=== PATIENT | female | born 2000 | race American Indian/Alaskan Native ===

== ENCOUNTER 2021-05-19 22:52 | Emergency (ER) | payer SELFPAY ==
[2021-05-19 23:16] VITALS: BP 112/68
[2021-05-19] MEDS ORDERED: FAMOTIDINE 20 MG/2 ML INJ IV ONE (23:52)
[2021-05-19] MEDS ORDERED: KETOROLAC 30 MG/1 ML INJ IV ONE (23:52)
[2021-05-20 00:26] LABS: Basophils % (Auto) 0.6 % (0.0-1.8); Eosinophils # (Auto) 0.1 K/mm3 (0.0-0.4); Eosinophils % (Auto) 0.9 % (0.0-4.3); Hematocrit 32.9 % (30.3-42.9); Hemoglobin 10.4 gm/dl (10.1-14.3); Lymphocytes # (Auto) 2.1 K/mm3 (1.2-5.4); Lymphocytes % (Auto) 28.6 % (13.4-35.0); Mean Corpuscular HGB Conc 32 % (30-34); Mean Corpuscular Volume 73 fl (79-97); Monocytes # (Auto) 0.7 K/mm3 (0.0-0.8); Monocytes % (Auto) 9.2 % (0.0-7.3); Platelet Count 286 K/mm3 (140-440); Red Blood Count 4.49 M/mm3 (3.65-5.03); Red Cell Distribution Width 15.1 % (13.2-15.2)
[2021-05-20 00:30] LABS: Bacteria,Urine 1+ /HPF (Negative); Bilirubin,Urine NEG (Negative); Blood,Urine NEG (Negative); Color,Urine Colorless (Yellow); Mucus,Urine FEW /HPF; Protein,Urine <15 mg/dL mg/dL (Negative); RBC,Urine < 1.0 /HPF (0.0-6.0); Urobilinogen,Urine < 2.0 mg/dL (<2.0)
[2021-05-20 00:31] LABS: HCG Qualitative,Urine Negative (Negative)
[2021-05-20] MEDS: ONDANSETRON 4 MG/2 ML INJ IV ONE ×2 (01:16→01:29)
--- NOTE | 2021-05-20 01:34 | Emergency Department Report ---
ED Abdominal Pain HPI - General Chief Complaint: Abdominal Pain Stated Complaint: ABD PAIN Source: patient Mode of arrival: Ambulatory Limitations: No Limitations - History of Present Illness Initial Comments: Patient is a nulliparous 20-year-old -[place] female with a history of PCOS who presents to the ED with complaint of acute onset persistent right flank pain that radiates to the right upper quadrant persistently for the last 2 days. Patient states that the pain is sharp, constant and worse with any movement. Patient states that she was initially evaluated at another urgent care clinic and was empirically treated with Bactrim DS for 3 days for suspected UTI. Patient states that in the last 8 hours, the pain has been persistent and worse, and was advised to come to the ED for evaluation when she went to another urgent care for evaluation. Patient denies nausea and vomiting, diarrhea, chest pain or shortness of breath, traumatic injury, heavy lifting, hematemesis, dizziness, syncope, dysuria, urinary frequency and urgency, vaginal bleeding, hematuria, constipation, fever and chills. MD Complaint: abdominal pain (RUQ ), flank pain (right flank) -: Sudden, days(s) (2) Location: RUQ, R flank Radiation: none Migration to: no migration Severity: moderate Severity scale (0 -10): 6 Quality: aching, sharp Consistency: constant Improves With: nothing Worsens With: nothing Associated Symptoms: denies other symptoms, nausea, anorexia. denies: vomiting, diarrhea, fever, chills, constipation, hematemesis, melena, syncope - Related Data Allergies Allergy/AdvReac Type Severity Reaction Status Date / Time No Known Allergies Allergy Unverified 05/19/21 23:21 ED Review of Systems ROS: Stated complaint: ABD PAIN Other details as noted in HPI Constitutional: denies: chills, fever Eyes: denies: eye pain, eye discharge, vision change ENT: denies: ear pain, throat pain Respiratory: denies: cough, shortness of breath, wheezing Cardiovascular: denies: chest pain, palpitations Endocrine: no symptoms reported Gastrointestinal: abdominal pain (RUQ and right flank), nausea. denies: diarrhea Genitourinary: denies: urgency, dysuria, discharge Musculoskeletal: denies: back pain, joint swelling, arthralgia Skin: denies: rash, lesions Neurological: denies: headache, weakness, paresthesias Psychiatric: denies: anxiety, depression Hematological/Lymphatic: denies: easy bleeding, easy bruising ED Past Medical Hx - Past Medical History Previous Medical History?: Yes Additional medical history: PCOS - Surgical History Past Surgical History?: No - Social History Smoking Status: Never Smoker Substance Use Type: None ED Physical Exam - General Limitations: No Limitations General appearance: alert, in no apparent distress - Head Head exam: Present: atraumatic, normocephalic, normal inspection - Eye Eye exam: Present: normal appearance, PERRL, EOMI Pupils: Present: normal accommodation - ENT ENT exam: Present: normal exam, normal orophraynx, mucous membranes moist, TM's normal bilaterally, normal external ear exam - Neck Neck exam: Present: normal inspection, full ROM - Respiratory Respiratory exam: Present: normal lung sounds bilaterally. Absent: respiratory distress, wheezes, rales, rhonchi, chest wall tenderness, accessory muscle use, decreased breath sounds, prolonged expiratory - Cardiovascular Cardiovascular Exam: Present: regular rate, normal rhythm, normal heart sounds. Absent: systolic murmur, diastolic murmur, rubs, gallop - GI/Abdominal GI/Abdominal exam: Present: soft, tenderness (Palpable RUQ and right flank tenderness), normal bowel sounds. Absent: guarding, rebound, hyperactive bowel sounds, hypoactive bowel sounds - Extremities Exam Extremities exam: Present: normal inspection, full ROM, normal capillary refill - Back Exam Back exam: Present: normal inspection, full ROM. Absent: tenderness, CVA tenderness (R), CVA tenderness (L), muscle spasm, paraspinal tenderness, vertebral tenderness - Neurological Exam Neurological exam: Present: alert, oriented X3, CN II-XII intact, normal gait, reflexes normal - Psychiatric Psychiatric exam: Present: normal affect, normal mood - Skin Skin exam: Present: warm, dry, intact, normal color. Absent: rash ED Course Vital Signs 05/19/21 05/20/21 23:11 01:15 Temperature 98.3 F Pulse Rate 97 H Respiratory 16 16 Rate Blood Pressure 112/68 O2 Sat by Pulse 99 Oximetry ED Medical Decision Making - Lab Data Result diagrams: 05/20/21 00:08 05/20/21 00:08 - Radiology Data Radiology results: report reviewed, image reviewed Gallbladder ultrasound showed no significant sonographic evidence of any abnormalities in the right upper quadrant - Medical Decision Making This is a nulliparous 20-year-old -[place] female with a history of PCOS who presents to the ED with complaint of acute onset persistent right flank pain that radiates to the right upper quadrant persistently for the last 2 days. Patient states that the pain is sharp, constant and worse with any movement. Patient states that she was initially evaluated at another urgent care clinic and was empirically treated with Bactrim DS for 3 days for suspected UTI. Patient states that in the last 8 hours, the pain has been persistent and worse, and was advised to come to the ED for evaluation when she went to another urgent care for evaluation. In the ED, patient is alert and oriented x3 and is not in any distress. Patient is hemodynamically stable. Lab test results were reviewed and are all nonactionable. Gallbladder ultrasound was unremarkable and showed no significant sonographic abnormality of the right upper quadrant. Patient however declined any pain medications because of fear of needles and walked out of the ED AGAINST MEDICAL ADVICE. - Differential Diagnosis Gallstones; UTI; kidney stone; GERD; pyelonephritis; Critical care attestation.: If time is entered above; I have spent that time in minutes in the direct care of this critically ill patient, excluding procedure time. ED Disposition Clinical Impression: Acute abdominal pain in right upper quadrant Disposition: 07 LEFT AGAINST MEDICAL ADVICE Is pt being admited?: No Does the pt Need Aspirin: No Condition: Undetermined Instructions: Abdominal Pain (ED) Time of Disposition: 01:34 Print Language: BANGLADESHI
[2021-05-20 01:47] LABS: Alanine Aminotransferase 11 units/L (7-56); Albumin 4.6 g/dL (3.9-5); BUN/Creatinine Ratio 8; Blood Urea Nitrogen 9 mg/dL (7-17); Calcium 9.1 mg/dL (8.4-10.2); Hemolysis Index 7
--- NOTE | 2021-05-22 08:23 | Ultrasound Report ---
ULTRASOUND ABDOMEN, LIMITED INDICATION / CLINICAL INFORMATION: RUQ Pain radiating to right flank. COMPARISON: None available. FINDINGS: PANCREAS: Visualized portion shows no significant abnormality. LIVER: No significant abnormality. Right hepatic lobe measures 13.1 cm. Normal hepatopedal blood flow in the main portal vein. GALLBLADDER: No significant abnormality. BILE DUCTS: No significant abnormality. Common bile duct measures 2.5 mm. FREE FLUID: None. ADDITIONAL FINDINGS: Aorta and inferior vena cava demonstrate no significant abnormalities. IMPRESSION: 1. No significant sonographic abnormality of the right upper quadrant. Signer Name: Zana Farley II, MD Signed: 05/20/2021 12:43 AM Workstation Name: [id number]
== END 2021-05-20 01:30 | disposition left against medical advice (07) ==
LOC: ED 22:52
DX: R10.11 Right upper quadrant pain (principal); Z79.899 Other long term (current) drug therapy
CPT/HCPCS: 36415; 76705; 80053; 81001; 81025; 83690; 85025; 96374; 96375; 99284; J3490; J1885; J2405